=== PATIENT | female | born 2000 | race Caucasian/White ===

== ENCOUNTER 2021-06-11 20:19 | Day surgery (SDC) | payer OTHER ==
[2021-06-11 20:43] VITALS: BMI 21.8
[2021-06-11] MEDS ORDERED: hydrALAZINE 20 MG/ML VIAL SLOW IVP PRN (20:55)
[2021-06-11] MEDS ORDERED: Ondansetron ODT 4 MG TAB SL PRN (21:09)
== END 2021-06-11 22:10 | disposition home or self-care (01) ==
LOC: CSHLD/OP 20:19
PROVIDERS: ATTEND Student in an Organized Health Care Education/Training Program
DX: O26.892 Other specified pregnancy related conditions, second trimester (principal); R10.9 Unspecified abdominal pain; O21.2 Late vomiting of pregnancy; O30.042 Twin pregnancy, dichorionic/diamniotic, second trimester; O10.012 Pre-existing essential hypertension complicating pregnancy, second trimester; Z3A.27 27 weeks gestation of pregnancy; Z79.82 Long term (current) use of aspirin; Z88.0 Allergy status to penicillin

== ENCOUNTER 2021-06-24 18:32 | Observation (INO) | payer OTHER ==
[2021-06-24 19:22] VITALS: BMI 22.8
[2021-06-24] MEDS ORDERED: hydrALAZINE 20 MG/ML VIAL SLOW IVP PRN ×2 (19:41→22:38)
[2021-06-24] MEDS ORDERED: Lactated Ringer's 1,000 ML IV SCH ×2 (20:00→22:45)
[2021-06-24 21:03] LABS: Bilirubin Neg (Negative); Blood, Urine Negative (Negative); Clarity Clear (Clear); Glucose, Urine (Dipstick) Normal (Negative); Ketone, Urine Negative (Negative); Leukocyte Negative (Negative); Nitrite Negative (Negative); Protein, Urine (Dipstick) Negative (Neg-Trace); Urobilinogen Normal mg/dL (Less than 2)
[2021-06-24 21:04] LABS: Urine Culture Reflex No No
[2021-06-24 21:07] LABS: Bacteria/HPF None Seen HPF (None Seen); RBC/HPF 0-3 HPF (0-3); Squamous Epithelial 0-3 HPF (0-3); WBC/HPF 0-3 HPF (0-3)
[2021-06-24 21:18] LABS: Fetal Membranes Rupture No Membranes Rupture (No Rupture)
[2021-06-24 21:51] LABS: SARS-CoV-2 NAA Rapid Test Not Detected (NotDetected)
[2021-06-24] MEDS ORDERED: Ondansetron PF 4 MG/2 ML Vial IVP PRN (22:38)
[2021-06-24] MEDS ORDERED: Zolpidem Tartrate 5 MG TAB PO PRN (22:38)
[2021-06-24] MEDS ORDERED: Promethazine HCl 25 MG/ML VIAL IM PRN (22:38)
[2021-06-24] MEDS ORDERED: Progesterone,Micronized 100 MG CAP PER TUBE SCH (23:00)
[2021-06-25] MEDS ORDERED: Progesterone,Micronized 100 MG CAP PER TUBE SCH (21:00)
== END 2021-06-25 09:05 | disposition home or self-care (01) ==
LOC: CSHLD/OP 18:32 → CSHLD 22:43
PROVIDERS: ADMIT Student in an Organized Health Care Education/Training Program; ATTEND Student in an Organized Health Care Education/Training Program
DX: O99.891 Other specified diseases and conditions complicating pregnancy (principal); R10.2 Pelvic and perineal pain; O10.012 Pre-existing essential hypertension complicating pregnancy, second trimester; O32.1XX1 Maternal care for breech presentation, fetus 1; O32.1XX2 Maternal care for breech presentation, fetus 2; O30.042 Twin pregnancy, dichorionic/diamniotic, second trimester; O26.872 Cervical shortening, second trimester; Z3A.25 25 weeks gestation of pregnancy; Z79.82 Long term (current) use of aspirin; Z88.0 Allergy status to penicillin; Z20.822 Contact with and (suspected) exposure to COVID-19
CPT/HCPCS: 51701; 76815; 81001; 84112; 99285; G0378; J7120; U0002

== ENCOUNTER 2021-07-30 11:09 | Inpatient (IN) | payer OTHER ==
[2021-07-30] MEDS ORDERED: hydrALAZINE 20 MG/ML VIAL SLOW IVP PRN ×3 (11:42→19:49)
[2021-07-30] MEDS ORDERED: Promethazine HCl 25 MG/ML VIAL IM PRN ×3 (12:31→19:49)
[2021-07-30] MEDS ORDERED: Ondansetron PF 4 MG/2 ML Vial IVP PRN ×3 (12:31→19:49)
[2021-07-30] MEDS ORDERED: Calcium Gluc 4.6 MEQ/10 ML (100 MG/ML) SLOW IVP PRN (12:35)
[2021-07-30] MEDS ORDERED: Magnesium Sulfate 20 gm/500 ml 20 GM/500 ML BAG ONE (12:36)
[2021-07-30] MEDS ORDERED: Magnesium Sulfate 20 gm/500 ml 20 GM/500 ML BAG IVPB SCH (12:45)
[2021-07-30] MEDS ORDERED: Magnesium Sulfate 20 GM/WATER 500 ML BAG IVPB SCH (12:45)
[2021-07-30] MEDS: Lactated Ringer's 1,000 ML IV SCH (12:47)
[2021-07-30 13:03] LABS: Hemoglobin 8.8 g/dL (12.0-15.5); Mean Corpuscular HGB CONC 31.2 g/dL (32.0-36.0); Mean Corpuscular Volume 80.1 fl (81.6-98.3); Mean Platelet Volume 9.8 fl (7.4-10.4); Platelet Count 270 10x3/uL (150-450); RBC Distribution Width 14.8 % (11.5-14.5); Red Blood Cell (RBC) Count 3.52 10x6/uL (3.90-5.03); White Blood Cell (WBC) Count 16.2 10x3/uL (3.5-10.5)
[2021-07-30] MEDS: Betamet Acet/Betamet Na Ph 30 MG/5 ML VIAL IM SCH (13:14)
[2021-07-30 13:40] LABS: Hep B Surf Ag Non-Reactive S/CO (NonReactive)
[2021-07-30 13:41] LABS: Syphilis Antibody Nonreactive (Nonreactive); Syphilis Antibody Index 0.02 S/CO (<1.00 Non-Reactive)
[2021-07-30] MEDS ORDERED: Bicitra 30 ML UDCUP PO PRN (13:43)
[2021-07-30] MEDS ORDERED: Famotidine/PF 20 mg/2ml Vial SLOW IVP PRN (13:43)
[2021-07-30] MEDS ORDERED: ceFAZolin 2 GM/Dextrose 50 ML 2 GM in Premix Bag 1 BAG IVPB SCH (13:45)
[2021-07-30] MEDS ORDERED: Azithromycin 500 MG in Sodium Chloride 0.9% 250 ML 250 ML IVPB SCH (13:45)
[2021-07-30 13:54] VITALS: BMI 23.6
[2021-07-30 14:08] LABS: HBSAg Index 0.15 S/CO (0-0.99)
[2021-07-30] MEDS ORDERED: Naloxone HCl 0.4 mg/ml Vial IV PRN (14:28)
[2021-07-30] MEDS ORDERED: Ketorolac Tromethamine 30 MG/ML VIAL IVP PRN (14:28)
[2021-07-30] MEDS ORDERED: Moisturizing Cream (Eucerin) 113 GM JAR TOP PRN (14:28)
[2021-07-30] MEDS ORDERED: diphenhydrAMINE 50 MG/ML VIAL IVP PRN (14:28)
[2021-07-30] MEDS ORDERED: Fentanyl 100 MCG/2 ML VIAL SLOW IVP PRN (14:28)
[2021-07-30] MEDS ORDERED: Naloxone HCl 0.4 mg/ml Vial IVP PRN ×2 (14:28)
[2021-07-30] MEDS ORDERED: L&D-Morphine 4 MG/ML VIAL SLOW IVP PRN (14:28)
[2021-07-30] MEDS ORDERED: Promethazine HCl 25 MG SUPP PR PRN (14:28)
[2021-07-30] MEDS ORDERED: Meperidine HCl/PF 25 MG/ML VIAL SLOW IVP PRN (14:28)
[2021-07-30] MEDS ORDERED: Ondansetron HCl/PF 4 MG/2 ML Vial IVP PRN (14:28)
[2021-07-30] MEDS ORDERED: Ketorolac Tromethamine 30 MG/ML VIAL IVP SCH (14:30)
[2021-07-30] MEDS ORDERED: Communication Order-Pharmacy FS SCH (14:30)
[2021-07-30] MEDS ORDERED: Morphine PF 10 MG/10 ML VIAL ONE (14:41)
[2021-07-30] MEDS ORDERED: Dexamethasone 4 mg/ml Vial ONE (14:41)
[2021-07-30] MEDS ORDERED: Ondansetron PF 4 MG/2 ML Vial ONE (14:41)
[2021-07-30] MEDS ORDERED: Oxytocin 10 UNITS/ML VIAL ONE (14:42)
[2021-07-30] MEDS ORDERED: PHENYLEPHRINE-NS 100 MCG/ML 10 ML SYRINGE ONE ×2 (14:42→15:37)
[2021-07-30 15:02] LABS: SARS-CoV-2 NAA Rapid Test Not Detected (NotDetected)
[2021-07-30] MEDS ORDERED: Acetaminophen 325 MG TAB PO PRN (19:49)
[2021-07-30] MEDS ORDERED: Boostrix 0.5 ML (Tdap) VIAL IM ONE (19:49)
[2021-07-30] MEDS ORDERED: Lanolin Ointment 7 GM TUBE TOP PRN (19:49)
[2021-07-30] MEDS ORDERED: Simethicone Chewable 80 MG TAB PO PRN (19:49)
[2021-07-30] MEDS ORDERED: diphenhydrAMINE 25 MG CAP PO PRN (19:49)
[2021-07-30] MEDS ORDERED: Bisacodyl 10 MG SUPP PR PRN (19:49)
[2021-07-31] MEDS ORDERED: HYDROcodone/Acetaminophen 5/325 mg Tablet PO PRN (02:30)
[2021-07-31] MEDS ORDERED: Zolpidem Tartrate 5 MG TAB PO PRN (02:30)
[2021-07-31] MEDS ORDERED: Meperidine HCl/PF 25 MG/ML VIAL IM PRN (02:30)
[2021-07-31] MEDS: HYDROcodone/Acetaminophen 5/325 mg Tablet PO PRN ×4 (04:17→16:41)
[2021-07-31 05:07] LABS: Hemoglobin 7.6 g/dL (12.0-15.5); Mean Corpuscular HGB CONC 31.7 g/dL (32.0-36.0); Mean Corpuscular Hemoglobin 25.2 pg (27.0-33.0); Mean Corpuscular Volume 79.7 fl (81.6-98.3); Platelet Count 327 10x3/uL (150-450); RBC Distribution Width 14.6 % (11.5-14.5); Red Blood Cell (RBC) Count 3.01 10x6/uL (3.90-5.03); White Blood Cell (WBC) Count 18.5 10x3/uL (3.5-10.5)
[2021-07-31] MEDS: Docusate 100 MG CAP PO SCH ×2 (07:18→08:22)
[2021-07-31] MEDS: Ferrous Sulfate 325 MG TAB PO SCH ×2 (07:18→08:23)
[2021-07-31] MEDS: Lactated Ringer's 1,000 ML IV SCH ×2 (07:18→07:20)
[2021-07-31] MEDS: Ibuprofen 800 MG TAB PO SCH ×2 (07:19→14:23)
[2021-07-31] MEDS: Betamet Acet/Betamet Na Ph 30 MG/5 ML VIAL IM SCH (07:20)
[2021-07-31] MEDS ORDERED: Prenatal Vitamin 1 TAB PO SCH (09:00)
[2021-07-31 15:29] VITALS: BP 119/82; TEMP 98.5
== END 2021-07-31 17:05 | disposition home or self-care (01) | DRG 788 ==
LOC: CSHLD/OP 11:09 → CSHLD 13:48 → CSHPED 19:30
PROVIDERS: ADMIT Student in an Organized Health Care Education/Training Program; ATTEND Student in an Organized Health Care Education/Training Program
PROC: 10D00Z1 Extraction of Products of Conception, Low, Open Approach (ICD-10-PCS; principal; 2021-07-30)
DX: O60.14X1 Preterm labor third trimester with preterm delivery third trimester, fetus 1 (principal); O60.14X2 Preterm labor third trimester with preterm delivery third trimester, fetus 2; O30.043 Twin pregnancy, dichorionic/diamniotic, third trimester; Z3A.30 30 weeks gestation of pregnancy; Z37.2 Twins, both liveborn; O99.02 Anemia complicating childbirth; D64.9 Anemia, unspecified; Z20.822 Contact with and (suspected) exposure to COVID-19; Z88.1 Allergy status to other antibiotic agents; Z88.0 Allergy status to penicillin; O32.8XX1 Maternal care for other malpresentation of fetus, fetus 1
CPT/HCPCS: 36415; 51702; 85027; 86780; 86850; 86900; 86901; 87340; 99285; J0690; J0702; J1100; J1200; J2274; J2405; J2590; J3475; S0028; U0002